=== PATIENT | male | born 1985 | race Caucasian/White ===

== ENCOUNTER 2022-04-18 07:55 | Outpatient (REF) | payer MEDICAID, SELFPAY ==
[2022-04-18 11:51] LABS: MANUAL DIFF FLAG NO
[2022-04-18 12:04] LABS: Basophils Percent Auto 0.4 % (0-2); Eosinophils Absolute Auto 0.2 X10*3/uL (0.0-0.4); Eosinophils Percent Auto 4.8 % (0-4); Hematocrit 45.5 % (42.0-52.0); Hemoglobin 14.9 g/dl (14.0-18.0); Imm Gran Abs Auto 0.01 X10*3/uL (0.00-0.03); Imm Gran Pct Auto 0.2 % (0.0-0.4); Lymphocytes Absolute Auto 1.6 X10*3/uL (1.2-4.9); Mean Corpuscular HGB Conc 32.7 g/dl (31.0-36.0); Mean Corpuscular Hemoglobin 31.7 pg (27.0-33.0); Mean Corpuscular Volume 96.8 fL (80.0-98.0); Mean Platelet Volume 11.7 fL (9.4-12.4); Monocytes Absolute Auto 0.5 X10*3/uL (0.1-1.2); Monocytes Percent Auto 9.4 % (2-11); Neutrophils Absolute Auto 2.7 x10*3/uL (2.0-8.3); Neutrophils Percent Auto 53.2 % (45-73); Platelet Count 186 X10*3/uL (160-400); Red Cell Distribution Width 12.6 % (11.0-16.0)
[2022-04-18 12:53] LABS: Folate 16.2 ng/mL (> or = 4.0); Vitamin B12 356 pg/mL (200-900)
[2022-04-18 13:01] LABS: Alanine Aminotransferase 43 U/L (0-40); Albumin Level 4.6 g/dL (3.5-5.0); Alkaline Phosphatase 61 U/L (39-117); Anion Gap 15 (12-20); Aspartate Amino Transferase 19 U/L (5-37); Bilirubin Total 0.3 mg/dL (0.0-1.0); Blood Urea Nitrogen 14 mg/dL (9-16); Calcium 9.7 mg/dL (8.4-10.2); Carbon Dioxide 27 mmol/L (22-29); Chloride 104 mmol/L (96-108); Cholesterol 272 mg/dL; Estimated Glomerular Filt Rate > 60; Glucose Random 107 mg/dL (60-115); HDL Cholesterol 49 mg/dL; LDL Cholesterol Calculated 203 mg/dl; Sodium 141 mmol/L (135-145); Total Protein 7.3 g/dL (6.5-8.0); Triglycerides 102 mg/dL
[2022-04-18 13:10] LABS: Thyroid Stimulating Hormone 1.91 uIU/mL (0.32-4.0); Vitamin D 25-OH Total 37.3 ng/mL (>30)
== END 2022-04-18 07:56 | disposition home or self-care (01) ==
LOC: HO.MANLDS 07:55
PROVIDERS: Visit Provider Internal Medicine
DX: R53.83 Other fatigue (principal)
CPT/HCPCS: 36415; 80053; 80061; 82306; 82607; 82746; 84443; 85025

== ENCOUNTER 2022-05-09 08:42 | Outpatient (REF) | payer MEDICAID, SELFPAY ==
[2022-05-13 16:51] LABS: Testosterone, Free 100.9 pg/mL (35.0-155.0); Testosterone, Total 726 ng/dL (250-1100)
== END 2022-05-09 08:43 | disposition home or self-care (01) ==
LOC: HO.MANLDS 08:42
PROVIDERS: Visit Provider Internal Medicine
DX: R53.83 Other fatigue (principal)
CPT/HCPCS: 36415; 84402; 84403

== ENCOUNTER 2023-08-01 23:46 | Emergency (ER) | payer MEDICAID, SELFPAY ==
[2023-08-01 23:47] VITALS: BP 133/100; PULSE 107; RESP 18; TEMP 36.9; O2SAT 97; BMI 29.2
[2023-08-02 00:45] LABS: Influenza A PCR NEGATIVE (Negative); Influenza B PCR NEGATIVE (Negative); Resp Syncy Virus RNA Qual PCR NEGATIVE (Negative); SARS COV2 PCR INHOUSE NEGATIVE (Negative)
== END 2023-08-02 01:24 | disposition left against medical advice (07) ==
PROVIDERS: Emergency Provider Emergency Medicine
DX: J02.9 Acute pharyngitis, unspecified (principal); Z20.822 Contact with and (suspected) exposure to COVID-19; Z20.828 Contact with and (suspected) exposure to other viral communicable diseases
CPT/HCPCS: 0241U; 87651; 99281; 99283

== ENCOUNTER 2023-08-03 03:07 | Emergency (ER) | payer MEDICAID, SELFPAY ==
[2023-08-03 03:17] VITALS: BP 147/94; PULSE 117; RESP 20; TEMP 36.3; O2SAT 98; BMI 29.2
[2023-08-03 03:26] VITALS: BP 147/95; PULSE 100
--- NOTE | 2023-08-03 03:42 | ED.ALLEREA ---
HPI - Allergic Reaction General Chief complaint: Allergic Reaction Stated complaint: swollen tonsils Time Seen by Provider: 08/03/23 03:20 Source: patient Mode of arrival: ambulatory Limitations: no limitations History of Present Illness HPI narrative: Patient comes to the emergency room complaining of voice changes, sensation of throat getting swollen. Patient states that patient has had 4 doses of amoxicillin which she took for strep. Patient states that since last night he started feeling that was that tingly sensation in the back of the throat. Today at night, patient started feeling that his voice started changing and that his throat was starting to feel more swollen. Patient denies shortness of breath. Related Data Allergies Allergy/AdvReac Type Severity Reaction Status Date / Time escitalopram [From Lexapro] Allergy Swelling Verified 08/01/23 23:53 Amoxicillin Allergy Severe Swelling Uncoded 08/03/23 03:44 Review of Systems Review of Systems: Constitutional : No Weight loss, No Fever, No Chills, No Night Sweats, No Fatigue, No Malaise ENT/Mouth : No Hearing loss, No Ear Pain, No Nasal Congestion, No Sinus Pain, patient complaining of hoarseness, foreign body sensation in the throat Eyes: No Eye Pain, No Swelling, No Redness, No Foreign Body, No Discharge, No Vision Changes Cardiovascular : No Chest Pain, No SOB, No Dyspnea on Exertion, No Orthopnea, No Edema, No Palpitations Respiratory : No Cough, No Sputum, No Wheezing, No Smoke Exposure, No Dyspnea Gastrointestinal : No Nausea, No Vomiting, No Diarrhea, No Constipation, No abdominal Pain, No Hematochezia, No Melena Genitourinary : no irregular bleeding, No Dysuria, No Urinary Frequency, No Hematuria, No Urinary Incontinence, No Urgency, No Flank Pain, No Urinary Flow Changes, No Hesitancy Musculoskeletal : No joint pain, No Myalgias, No Joint Swelling Skin : No Skin Lesions, No rash Neuro : No Weakness, No Numbness, No Paresthesias, No Loss of Consciousness, No Dizziness, No Headache Psych : No Anxiety/Panic, No Depression, No SI/HI/AH/VH, No Social Issues, Heme/Lymph: No Bruising, No Bleeding,No Lymphadenopathy Endocrine : No Polyuria, No Polydipsia, No Temperature Intolerance PMFSH Social History Social History Advance Directives: No Advance Directives Information Provided: No Physical Exam ED Vital Signs: Vital Signs - 24 hr 08/03/23 03:17 08/03/23 03:26 08/03/23 07:22 Temperature 97.3 F Pulse Rate 117 H 100 95 Respiratory Rate 20 20 Blood Pressure 147/94 H 147/95 H 147/90 H Pulse Oximetry 98 Oxygen Delivery Method Room Air Room Air BMI result Body Mass Index 29.2 Const Other: Appearance: Alert. Oriented X3. No acute distress. Eyes: Pupils equal, round and reactive to light. ENT: Posterior oropharynx swollen, large phlegmon present on the left, patient does have voice changes Neck: Normal inspection. Neck supple. No lymph nodes noted. No crepitus CVS: Normal heart rate and rhythm. Pulses normal. Normal S1 and S2 Respiratory: No respiratory distress. Breath sounds normal. No Wheezing. No rales Abdomen: Soft and nontender. No rigidity. No distention. Skin: Skin warm and dry. Normal skin color. Normal skin turgor. Extremities: No lower extremity edema. No Lacerations. No Rash Neuro: Oriented X 3. No motor deficit. No sensory deficit. Moving all extremities. No slurred speech. CN 2 through 12 grossly intact Psych: calm, cooperative, normal affect Course Course Course Narrative: -on arrival, patient is not wheezing, patient has a large phlegmon in the posterior oropharynx, saturating 99% on room air. -patient being given IV fluids, IM epinephrine, IV Benadryl, Pepcid, Solu-Medrol Medications Administered Discontinued Medications Generic Name Dose Route Start Last Admin Trade Name Freq PRN Reason Stop Dose Admin Diphenhydramine HCl 50 mg 08/03/23 03:21 08/03/23 03:26 Diphenhydramine Hcl 50 Mg/Ml Vial IVPUSH 08/03/23 03:22 50 mg ONCE ONE Administration Epinephrine 0.3 mg 08/03/23 03:21 08/03/23 03:26 Epinephrine 1 Mg/Ml Vial IM 08/03/23 03:22 0.3 mg STAT STA Administration Famotidine 20 mg 08/03/23 03:21 08/03/23 03:26 Famotidine/Pf 20 Mg/2 Ml Vial IVPUSH 08/03/23 03:22 20 mg ONCE ONE Administration Sodium Chloride 1,000 mls @ 999 mls/hr 08/03/23 03:21 08/03/23 07:19 Ns IVCONT 08/03/23 04:21 Infused .Q1H1M ONE Infusion Clindamycin Phosphate 300 mg in 50 mls @ 100 mls/hr 08/03/23 05:22 08/03/23 07:19 Cleocin IV 08/03/23 05:51 Infused ONCE ONE Infusion Iohexol 60 ml 08/03/23 05:33 08/03/23 05:34 Iohexol 350 Mg/Ml 100 Ml Infus..Btl IV 08/03/23 05:34 60 ml ONCE ONE Administration Methylprednisolone Sodium Succinate 125 mg 08/03/23 03:21 08/03/23 03:26 Methylprednisolone Sod Succ 125 Mg/2 Ml Vial IVPUSH 08/03/23 03:22 125 mg ONCE ONE Administration Medical Decision Making Medical Decision Making [facility] Narrative: -my interpretation of labs, white blood cell count is elevated. -patient received IV treatment as above. Patient states that he has mild improvement, still has a foreign body sensation in the throat. Phlegm it is still present. -my interpretation of CT scan of the soft tissue of the neck: [place] phlegmon versus abscess -we attempted to drain the abscess by aspiration, no fluid was aspirated. My colleague Dr. Jaquez attempted to drain the abscess, no fluid was drained. -is possible that this may be a phlegm in versus an abscess. As mentioned above, patient has already received steroids and clindamycin. -patient is stable, handling his own secretions. -we do not have ENT backup here at [facility] -we tried calling several hospitals in this area that have ENT. However, all are closed to transfers. -we were able to get in touch with [facility], patient will be transferred from ED to ED for an ENT consult, accepting physician in the ED is Dr. Hopkins -patient's imaging will be traveling with the patient. -I discussed the above-mentioned with the patient, patient agreeable to transfer -sign-out given to my colleague Dr. Jaquez Differential Diagnosis Differential Diagnoses: The differential diagnosis associated with the presentation includes (Left palatine tonsillar phlegm in, versus abscess) Admission/Observation Consideration of admission/observation: Escalation of care including admission/observation considered Consult Healthcare Provider Management of the patient was discussed with: Pmp Project Manager Lab Data [facility] Lab Attestation statement: I reviewed the patient's lab results. 08/03/23 03:43 08/03/23 03:43 Labs: Lab Results 08/03/23 Range/Units 03:43 WBC 14.6 H (4.8-10.8) X10*3/uL RBC 4.60 (4.60-5.80) X10*6/uL Hgb 14.5 (14.0-18.0) g/dl Hct 43.1 (42.0-52.0) % MCV 93.7 (80.0-98.0) fL MCH 31.5 (27.0-33.0) pg MCHC 33.6 (31.0-36.0) g/dl RDW 12.2 (11.0-16.0) % Plt Count 213 (160-400) X10*3/uL MPV 10.1 (9.4-12.4) fL Immature Gran % (Auto) 0.3 (0.0-0.4) % Neut % (Auto) 74.3 H (45-73) % Lymph % (Auto) 11.8 L (20-40) % [place] % (Auto) 13.0 H (2-11) % Eos % (Auto) 0.3 (0-4) % Baso % (Auto) 0.3 (0-2) % Lymph # (Auto) 1.7 (1.2-4.9) X10*3/uL [place] # (Auto) 1.9 H (0.1-1.2) X10*3/uL Eos # (Auto) 0.0 (0.0-0.4) X10*3/uL Baso # (Auto) 0.0 (0.0-0.2) X10*3/uL Abs Immat Gran (auto) 0.05 H (0.00-0.03) X10*3/uL Absolute Neuts (auto) 10.8 H (2.0-8.3) x10*3/uL Absolute Nucleated RBC 0.000 (0.0-0.012) X10*3/uL Nucleated RBC % (auto) 0.0 (0.0-0.2) /100WBC Smear Tech's Comments VERIFIED Sodium 138 (135-145) mmol/L Potassium 3.9 D (3.3-5.1) mmol/L Chloride 100 (96-108) mmol/L Carbon Dioxide 27 (22-29) mmol/L Anion Gap 15 (12-20) BUN 7 L (9-16) mg/dL Creatinine 0.84 (0.5-1.4) mg/dL Estim Creat Clear Calc 159.6 Estimated GFR > 60 Random Glucose 130 H (60-115) mg/dL Lactic Acid 0.9 (0.5-2.0) mmol/L Calcium 9.7 (8.4-10.2) mg/dL Independent Interpretation I performed an independent interpretation of an: CT Scan Radiology Impression Discussion of test interpretation with radiology: I have reviewed the radiologist's reading. Radiologist Impression: INDINGS: There is a 4.2 x 3.2 x 2.6 cm somewhat heterogeneous low-density left palatine tonsillar/peritonsillar collection with mass effect on the adjacent soft tissue and oropharyngeal airway with slight deviation of the airway to the right. Scattered small cervical lymph nodes are noted. The adenoids and right palatine tonsils are prominent. The uvula is enlarged. The submandibular glands, parotid glands and thyroid glands are unremarkable. The vascular structures are unremarkable. The bony structures are unremarkable. There is left maxillary sinus mucosal thickening. The remaining maxillofacial sinuses and mastoids are clear. The orbital structures are unremarkable. The visualized upper lung min are unremarkable. CT/CT soft tissue neck w IV con IMPRESSION: Left palatine tonsillar phlegmon/abscess measuring up to 4.2 cm with mass effect on the adjacent soft tissue and oropharyngeal airway with slight deviation of the airway to the right. Critical Care Time Critical Care Time Critical Care Time: Yes Total Critical Care Time: 75 Attestation: Please follow-up with your primary care physician tomorrow. If you have any worsening or new symptoms, please return to the emergency room or call 911 Discharge Plan Discharge Clinical Impression: Phlegmon Patient Disposition: [facility]
--- NOTE | 2023-08-03 06:25 | PC.NURSE ---
pt is able to swallow, talking in full sentences sat 98% on room, no drooling. swelling improving to mouth cavity/throat.
[2023-08-03 07:22] VITALS: BP 147/90; PULSE 95; RESP 20
--- NOTE | 2023-08-03 07:23 | PC.NURSE ---
Alert and oriented, denies pain states some discomfort in mouth d/t swelling. Seen by provider to drain abscess. Patient able to manage secretions with no respiratory difficulty. sating 97% on RA. sipping small amount of water, able to self suction as needed
--- NOTE | 2023-08-03 09:30 | PC.NURSE ---
Transferred to [facility] via [facility]
== END 2023-08-03 09:33 | disposition short-term general hospital (02) ==
PROVIDERS: Emergency Provider Emergency Medicine
DX: J36 Peritonsillar abscess (principal); M54.2 Cervicalgia; Z79.899 Other long term (current) drug therapy
CPT/HCPCS: 36415; 70491; 80048; 83605; 85025; 87040; 96361; 96372; 96374; 96375; 99285; J0171; J0736; J1200; J2930; Q9967